=== PATIENT | male | born 2000 | race Caucasian/White ===

== ENCOUNTER 2020-11-13 18:13 | Emergency (ER) | payer OTHER ==
[~2020-11-13] VITALS: Ht 185.4 cm; Wt 87.1 kg
[2020-11-13] MEDS ORDERED: IBUPROFEN600 MG PO (23:21)
== END 2020-11-13 23:34 | disposition home or self-care (01) ==
LOC: ED 18:13
DX: S13.9XXA Sprain of joints and ligaments of unspecified parts of neck, initial encounter (principal); F17.200 Nicotine dependence, unspecified, uncomplicated; V89.2XXA Person injured in unspecified motor-vehicle accident, traffic, initial encounter; Y93.89 Activity, other specified; Y92.89 Other specified places as the place of occurrence of the external cause; Y99.8 Other external cause status

== ENCOUNTER 2021-08-29 09:31 | Emergency (ER) | payer SELFPAY ==
[~2021-08-29] VITALS: Ht 190.5 cm; Wt 106.6 kg
[~2021-08-29 09:31] MED LIST: IBUPROFEN600 MG PO
[2021-08-29] MEDS ORDERED: NAPROXEN250 MG PO (10:43)
[2021-08-29] MEDS ORDERED: TYLENOL325 M1 PO (10:43)
== END 2021-08-29 10:42 | disposition home or self-care (01) ==
LOC: ED 09:31
DX: M54.50 Low back pain, unspecified (principal); F17.200 Nicotine dependence, unspecified, uncomplicated